=== PATIENT | female | born 1980 | race Caucasian/White ===

== ENCOUNTER 2017-01-28 14:53 | Emergency (ER) | payer OTHER, BC ==
[2017-01-28 16:59] LABS: BASOPHILS % (AUTO) 0.5 %; HCT - HEMATOCRIT 41.1 % (37.0-47.0); LYMPHOCYTES # (AUTO) 1.6 10^3/uL (1.5-3.5); LYMPHOCYTES % (AUTO) 23.5 %; MEAN CORPUSCULAR HEMOGLOBIN 30.5 pg (27.0-31.0); MEAN CORPUSCULAR HGB CONC 34.1 g/dL (32.0-36.0); MEAN CORPUSCULAR VOLUME 89.5 fL (81.0-99.0); MEAN PLATELET VOLUME 7.5 fL (7.9-10.8); MONOCYTES # (AUTO) 0.4 10^3/uL (0.0-1.0); MONOCYTES % (AUTO) 5.2 %; NEUTROPHILS % (AUTO) 70.8 %; RED BLOOD COUNT 4.59 10^6/uL (4.20-5.40); RED CELL DISTRIBUTION WIDTH 13.5 % (12.0-15.0)
[2017-01-28 17:07] LABS: ALBUMIN/GLOBULIN RATIO 1.3 (1.0-2.2); BILIRUBIN,TOTAL 0.5 mg/dL (0.2-1.0); BUN - BLOOD UREA NITROGEN 18 mg/dL (6-20); CARBON DIOXIDE - CO2 31 mmol/L (21-32); CHLORIDE 94 mmol/L (101-111); CREATININE 1.4 mg/dL (0.4-1.0); GFR - MDRD 43 (>89); GLUCOSE 106 mg/dL (70-100); LIPASE 31 U/L (22-51); SODIUM 135 mmol/L (135-145); TOTAL PROTEIN 6.9 g/dL (6.7-8.2)
[2017-01-28] MEDS ORDERED: POTASSIUM BICARB 25 MEQ TABLET PO STA (17:07)
[2017-01-28] MEDS ORDERED: POTASSIUM BICARB 25 MEQ TABLET PO ONE (17:08)
[2017-01-28 17:13] LABS: POTASSIUM 2.5 mmol/L (3.5-5.0)
[2017-01-28 17:42] LABS: BILIRUBIN,URINE NEGATIVE (NEGATIVE); PH,URINE 5.5 PH (5.0-7.5)
[2017-01-28 17:46] LABS: UA w/ MICROSCOPIC CHARGE YES
[2017-01-28 18:02] LABS: UR CULTURE IF IND NOT INDICATED
[2017-01-28 18:03] LABS: HCG UR QUAL NEGATIVE
[2017-01-28] MEDS ORDERED: AZITHROMYCIN 250 MG TABLET PO STA (18:38)
[2017-01-28] MEDS ORDERED: cefTRIAXone 250 MG VIAL IM STA (18:38)
[2017-01-28] MEDS ORDERED: ULIPRISTAL ACETATE 30 MG TABLET PO STA (18:39)
[2017-01-28] MEDS ORDERED: AZITHROMYCIN 250 MG TABLET PO ONE (18:43)
[2017-01-28] MEDS ORDERED: LIDOCAINE 1% 2 ML VIAL ONE (18:44)
[2017-01-28] MEDS ORDERED: cefTRIAXone 250 MG VIAL ONE (18:44)
[2017-01-28] MEDS ORDERED: ULIPRISTAL ACETATE 30 MG TABLET PO ONE (18:44)
[2017-01-28] MEDS ORDERED: ONDANSETRON ODT 4 MG TABLET ONE (18:46)
[2017-01-28] MEDS ORDERED: HYDROcod/ACETAM 5/325 MG TABLET PO STA (20:35)
[2017-01-28] MEDS ORDERED: HYDROcod/ACETAM 5/325 MG TABLET ONE (20:37)
[2017-01-28 20:52] VITALS: BP 111/80
[2017-01-28] MEDS ORDERED: oxyCODONE 5 MG TABLET PO STA (20:56)
[2017-01-28] MEDS ORDERED: oxyCODONE 5 MG TABLET ONE (20:57)
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
== END 2017-01-28 23:47 | disposition home or self-care (01) ==
LOC: ED 14:53
DX: T76.21XA Adult sexual abuse, suspected, initial encounter (principal); T76.11XA Adult physical abuse, suspected, initial encounter; S90.121A Contusion of right lesser toe(s) without damage to nail, initial encounter; S90.31XA Contusion of right foot, initial encounter; T20.02XA Burn of unspecified degree of lip(s), initial encounter; X97.XXXA Assault by smoke, fire and flames, initial encounter; M54.5 Low back pain; R51 Headache; F15.10 Other stimulant abuse, uncomplicated; E87.6 Hypokalemia; F17.200 Nicotine dependence, unspecified, uncomplicated
CPT/HCPCS: 0133C; 36415; 80053; 80306; 81001; 81025; 83690; 85025; 99283; A9270; Q0162; 11760; 81003; 87086

== ENCOUNTER 2021-12-04 23:38 | Outpatient (CLI) | payer BC | END 2021-12-04 23:39 | disposition E | LOC: EMS 23:38 | DX: I46.9 Cardiac arrest, cause unspecified (principal) | CPT/HCPCS: A0425; A0428 ==